=== PATIENT | male | born 1950 | race American Indian/Alaskan Native ===

== ENCOUNTER 2019-08-20 01:26 | Inpatient (IN) | payer MEDICARE ==
--- NOTE | 2019-08-20 01:55 | Emergency Department Report ---
ED Chest Pain HPI - General Chief Complaint: Chest Pain Stated Complaint: CHEST PAIN Time Seen by Provider: 08/20/19 01:35 Source: patient, EMS Mode of arrival: Stretcher Limitations: Physical Limitation - History of Present Illness Initial Comments: 69-year-old -[place] male presents to the emergency department from [facility] with the complaint of a 2-3 day history of some chest pain. He denies any significant shortness of breath but says that the chest pain is "spreading". He had some nausea and vomiting earlier in the day and complains of some intermittent abdominal pains. He did not take anything, nor was given anything, for his symptoms prior to presentation. The patient was at the [facility] for chest pains about 2 weeks ago and he says that they were the ones who sent him to the [facility]. He has a past medical history of diabetes, coronary artery disease, BPH, PTSD, peripheral neuropathy. Denies any tobacco or illicit drug use. Severity scale (0 -10): 10 - Related Data Allergies Allergy/AdvReac Type Severity Reaction Status Date / Time gabapentin Allergy Unknown Verified 08/20/19 01:38 lisinopril Allergy Unknown Verified 08/20/19 01:38 simvastatin Allergy Unknown Verified 08/20/19 01:38 oatmeal Allergy Unknown Uncoded 08/20/19 01:38 Heart Score - HEART Score History: Slightly suspicious EKG: Normal Age: > 65 Risk factors: 1-2 risk factors Troponin: < normal limit HEART Score: 3 - Critical Actions Critical Actions: 0-3 pts:0.9-1.7%risk of adverse cardiac event.Candidate for discharge ED Review of Systems ROS: Stated complaint: CHEST PAIN Other details as noted in HPI Comment: All other systems reviewed and negative Constitutional: denies: chills, fever Eyes: denies: eye pain, vision change ENT: denies: ear pain, throat pain Respiratory: denies: cough, shortness of breath Cardiovascular: chest pain. denies: palpitations Gastrointestinal: abdominal pain, nausea, vomiting Genitourinary: denies: dysuria, discharge Musculoskeletal: denies: back pain, arthralgia Neurological: denies: headache, weakness ED Past Medical Hx - Past Medical History Previous Medical History?: Yes Hx Diabetes: Yes Hx Psychiatric Treatment: Yes (PTSD) Additional medical history: depression, peripheral neuropathy, CAD, lesion of sciatic nerve - Surgical History Past Surgical History?: No - Social History Smoking Status: Current Every Day Smoker Substance Use Type: None ED Physical Exam - General Limitations: Physical Limitation - Other Other exam information: GENERAL: The patient is well-developed well-nourished. HEENT: Normocephalic. Atraumatic. Patient has moist mucous membranes. EYES: Extraocular motions are intact. NECK: Supple. Trachea is midline. CHEST/LUNGS: Clear to auscultation. There is no respiratory distress noted. HEART/CARDIOVASCULAR: Regular. There is no tachycardia. There is no murmur. ABDOMEN: Abdomen is soft, nontender. Patient has normal bowel sounds. There is no abdominal distention. SKIN:Skin is warm and dry. . NEURO: The patient is awake, alert, and oriented. The patient is cooperative. The patient has no focal neurologic deficits. Normal speech. MUSCULOSKELETAL: There is no tenderness or deformity. There is no evidence of acute injury. ED Course Vital Signs 08/20/19 01:38 Temperature 97.9 F Pulse Rate 78 Respiratory 16 Rate Blood Pressure 95/49 O2 Sat by Pulse 97 Oximetry WASHINGTON score - Washington Score Age > 65: (1) Yes Aspirin use within the Past 7 Days: (1) Yes 3 or more CAD Risk Factors: (0) No 2 or more Angina events in past 24 hrs: (1) Yes Known CAD with more than 50% Stenosis: (0) No Elevated Cardiac Markers: (0) No ST Deviation Greater than 0.5mm: (0) No WASHINGTON Score: 3 ED Medical Decision Making - Lab Data Result diagrams: 08/20/19 01:57 08/20/19 01:57 - EKG Data -: EKG Interpreted by Me EKG shows normal: sinus rhythm, axis, intervals, QRS complexes, ST-T waves Rate: normal - EKG Data When compared to previous EKG there are: previous EKG unavailable Interpretation: normal EKG - Radiology Data Radiology results: image reviewed interpreted by me: Chest x-ray does not show any pleural effusions, pneumonia, pneumothorax, focal consolidation, or any other acute process. Abdominal x-ray shows nonspecific nonobstructive bowel gas - Medical Decision Making This patient presents with some chest pain with some recent nausea and vomiting. It appears that he also has some intermittent abdominal pains. His initial EKG is normal without ST elevation WI. Negative d-dimer and negative first troponin. Patient appears to have some anemia and thrombocytopenia. He also has some renal insufficiency with a GFR of about 45. Chest x-ray did not show any pneumonia, pleural effusions, or any other acute process. Aspirin has been held secondary to the thrombocytopenia. He has a moderate heart and WASHINGTON score. For all these reasons patient will be admitted to the hospital for further evaluation and treatment and was accepted for admission by the hospitalist, Dr. Benitez. - Differential Diagnosis WI, PE, dysrhythmia, costochondritis, pneumonia Critical Care Time: No Critical care attestation.: If time is entered above; I have spent that time in minutes in the direct care of this critically ill patient, excluding procedure time. ED Disposition Clinical Impression: Acute chest pain, Thrombocytopenia, Renal insufficiency Anemia Qualifiers: Anemia type: unspecified type Qualified Code(s): D64.9 - Anemia, unspecified Disposition: 09 OP ADMIT IP TO THIS HOSP Is pt being admited?: Yes Condition: Fair Time of Disposition: 03:40
[2019-08-20] MEDS ORDERED: ONDANSETRON 4 MG/2 ML INJ IV ONE (02:12)
[2019-08-20 02:25] LABS: Hematocrit 25.6 % (35.5-45.6); Hemoglobin 8.8 gm/dl (11.8-15.2); Mean Corpuscular HGB Conc 34 % (32-34); Mean Corpuscular Volume 87 fl (84-94); Red Blood Count 2.94 M/mm3 (3.65-5.03)
[2019-08-20 02:37] LABS: Red Cell Distribution Width 20.2 % (13.2-15.2)
[2019-08-20] MEDS ORDERED: SODIUM CHLORIDE 0.9% 1000 ML 1,000 ML IV ONE (02:40)
[2019-08-20 02:44] LABS: Alanine Aminotransferase 10 units/L (7-56); Albumin 3.3 g/dL (3.9-5); BUN/Creatinine Ratio 15; Blood Urea Nitrogen 24 mg/dL (9-20); Calcium 8.6 mg/dL (8.4-10.2); Hemolysis Index 1; INR 1.14 (0.87-1.13)
[2019-08-20 02:46] LABS: Partial Thromboplastin Time 26.9 Sec. (24.2-36.6)
--- NOTE | 2019-08-20 02:46 | XRay Report ---
Abdomen 3 views, Indication: CP, Abd pain Findings: The bowel gas pattern is within normal limits. There are no dilated loops of large or small bowel. No free air is identified. No radiopaque urinary tract calculi are seen. Lungs are clear. Impression: No acute findings. Signer Name: Luis Enrique Daigle MD Signed: 08/20/2019 2:41 AM Workstation Name: [id number]
[2019-08-20] MEDS ORDERED: ACETAMINOPHEN 325 MG TAB PO PRN (03:08)
[2019-08-20] MEDS ORDERED: DEXTROSE 50% IN WATER (25GM) 50 ML SYRINGE IV PRN (03:08)
[2019-08-20] MEDS ORDERED: ALBUTEROL 2.5 MG/3 ML NEBU IH PRN (03:08)
[2019-08-20] MEDS ORDERED: ONDANSETRON 4 MG/2 ML INJ IV PRN (03:08)
[2019-08-20] MEDS ORDERED: ASPIRIN 325 MG TAB PO ONE (03:09)
[2019-08-20] MEDS ORDERED: METOCLOPRAMIDE 10 MG/2 ML INJ IV PRN ×2 (03:10→13:00)
[2019-08-20] MEDS ORDERED: NITROGLYCERIN 0.4 MG TAB SUBL SL PRN (03:10)
[2019-08-20] MEDS ORDERED: SODIUM CHLORIDE 0.9% 1000 ML 1,000 ML IV SCH (03:15)
[2019-08-20 03:32] LABS: Platelet Count 63 K/mm3 (140-440)
[2019-08-20 03:39] LABS: Anisocytosis 1+; Band Neutrophils # (Manual) 0.1 K/mm3; Basophils % (Manual) 0 % (0.0-1.8); Total Cells Counted 100
[2019-08-20 03:40] LABS: Platelet Estimate Consistent w Auto
--- NOTE | 2019-08-20 03:57 | History and Physical Report ---
<GINGER NEWBY - Last Filed: 08/20/19 03:58> History of Present Illness Date of examination: 08/20/19 Date of admission: 08/20/2019 Chief complaint: chest pain History of present illness: 69-year-old -[place] male who is a current resident at [facility] with history of diabetes, CAD, BPH, PTSD, peripheral neuropathy, lesions of the sciatic nerve, and hypertension who presents to PSYCHIATRIC ED with complaints of chest pain. Patient states he has been experiencing left- sided chest pain for the past 2 weeks. He describes the pain as dull and states that the pain is constant. He rates the pain 6/10. He admits to having shortness of breath, nausea, and vomiting. He denies diaphoresis. Of note patient was recently admitted at [facility] with complaints of chest pain. Patient states that he underwent labs and EKG. He is not sure whether or not his work-up included stress testing or echocardiogram. Patient was discharged to [facility]. Given patient's recent a dmission to [facility] with complaints of chest pain will defer additional cardiac work-up to cardiology. Will admit for further evaluation of chest pain. Also will consult mental health for evaluation. Past History Past Medical History: CAD, diabetes, other (BPH, PTSD, peripheral neuropathy, lesions of sacroiliac) Past Surgical History: No surgical history Social history: smoking (Smokes 3 to 4 cigarettes/day) Family history: no significant family history Medications and Allergies Allergies Allergy/AdvReac Type Severity Reaction Status Date / Time gabapentin Allergy Unknown Verified 08/20/19 01:38 lisinopril Allergy Unknown Verified 08/20/19 01:38 simvastatin Allergy Unknown Verified 08/20/19 01:38 oatmeal Allergy Unknown Uncoded 08/20/19 01:38 Home Medications Medication Instructions Recorded Confirmed Last Taken Type Acetaminophen [Tylenol] 325 mg PO Q6HR PRN 08/20/19 08/20/19 Unknown History Amlodipine Besylate [Norvasc] 2 tab PO DAILY 08/20/19 08/20/19 Unknown History Aspirin EC [Halfprin EC] 1 tab PO DAILY 08/20/19 08/20/19 Unknown History Duloxetine HCl 1 cap PO QAM 08/20/19 08/20/19 Unknown History Escitalopram Oxalate [Lexapro] 1.5 tab PO DAILY 08/20/19 08/20/19 Unknown History HYDROcodone/ACETAMINOPHEN 1 tab PO Q4HR PRN 08/20/19 08/20/19 Unknown History [Hydrocodone-Acetamin 5-300 mg] Insulin Glargine [Lantus VIAL] 15 units SQ HS 08/20/19 08/20/19 Unknown History Latanoprost 0.005% 1 drop HS 08/20/19 08/20/19 Unknown History Melatonin [Melatonin 3MG TAB] 1 tab PO HS PRN 08/20/19 08/20/19 Unknown History Omeprazole Magnesium [PriLOSEC Otc] 1 cap PO BID 08/20/19 08/20/19 Unknown History Pregabalin [Lyrica] 1 cap PO BID 08/20/19 08/20/19 Unknown History Tamsulosin [Flomax] 1 tab PO DAILY 08/20/19 08/20/19 Unknown History raNITIdine HCl [Zantac] 1 tab PO BID 08/20/19 08/20/19 Unknown History Active Meds: Active Medications Acetaminophen (Tylenol) 650 mg PO Q4H PRN PRN Reason: Pain MILD(1-3)/Fever >100.5/COLON Albuterol (Proventil) 2.5 mg IH Q3HRT PRN PRN Reason: Shortness Of Breath Aspirin (Baby Aspirin) 81 mg PO QDAY [facility] Dextrose (D50w (25gm) Syringe) 0 ml IV Q30MIN PRN; Protocol PRN Reason: Hypoglycemia Docusate Sodium (Colace) 100 mg PO BID [facility] Heparin Sodium (Porcine) (Heparin) 5,000 unit SUB-Q Q12HR [facility] Sodium Chloride (Nacl 0.9% 1000 Ml) 1,000 mls @ 75 mls/hr IV DIRECT [facility] Insulin Human Lispro (Humalog) 0 unit SUB-Q ACHS [facility]; Protocol Metoclopramide HCl (Reglan) 10 mg IV Q6H PRN PRN Reason: Nausea And Vomiting Nitroglycerin (Nitrostat) 0.4 mg SL Q5M PRN PRN Reason: Chest Pain Ondansetron HCl (Zofran) 4 mg IV Q6H PRN PRN Reason: Nausea And Vomiting Oxycodone/Acetaminophen (Percocet 5/325) 1 tab PO Q6H PRN PRN Reason: Pain, Moderate (4-6) Sodium Chloride (Sodium Chloride Flush Syringe 10 Ml) 10 ml IV BID [facility] Sodium Chloride (Sodium Chloride Flush Syringe 10 Ml) 10 ml IV PRN PRN PRN Reason: LINE FLUSH Review of Systems All systems: negative Cardiovascular: chest pain, shortness of breath Exam - Physical Exam Narrative exam: Physical exam General appearance: Present: No acute distress, alert and oriented 3, older adult -Q[place] male - EENT Eyes: Present: PERRL, EOM intact ENT: hearing intact, poor dentition - Neck Neck: Present: supple, normal ROM - Respiratory Respiratory effort: Non-labored Respiratory: Clear throughout - Cardiovascular Heart rate: 101 (bpm) Rhythm: Sinus tachycardia Heart Sounds: Present: S1 & S2. Absent: rub, click - Extremities Extremities: no ischemia, pulses intact, - Peripheral Assessment Peripheral Pulses: within normal limits - Abdominal General gastrointestinal: soft, non-tender, normal bowel sounds - Integumentary Integumentary: Present: warm, dry - Musculoskeletal Musculoskeletal: Able to move all extremities -Neurological Neurological: CN II-XII intact - Psychiatric Psychiatric: cooperative - Constitutional Vitals: Temp Pulse Resp BP Pulse Ox 97.9 F 78 16 95/49 97 08/20/19 01:38 08/20/19 01:38 08/20/19 01:38 08/20/19 01:38 08/20/19 01:38 MARCO score - Marco Score Age > 65: (1) Yes Aspirin use within the Past 7 Days: (1) Yes 3 or more CAD Risk Factors: (0) No 2 or more Angina events in past 24 hrs: (1) Yes Known CAD with more than 50% Stenosis: (0) No Elevated Cardiac Markers: (0) No ST Deviation Greater than 0.5mm: (0) No MARCO Score: 3 Results - Labs CBC & Chem 7: 08/20/19 01:57 08/20/19 01:57 Labs: Laboratory Last Values WBC 8.9 K/mm3 (4.5-11.0) 08/20/19 01:57 RBC 2.94 M/mm3 (3.65-5.03) L 08/20/19 01:57 Hgb 8.8 gm/dl (11.8-15.2) L 08/20/19 01:57 Hct 25.6 % (35.5-45.6) L 08/20/19 01:57 MCV 87 fl (84-94) 08/20/19 01:57 MCH 30 pg (28-32) 08/20/19 01:57 MCHC 34 % (32-34) 08/20/19 01:57 RDW 20.2 % (13.2-15.2) H 08/20/19 01:57 Plt Count 63 K/mm3 (140-440) L 08/20/19 01:57 Add Manual Diff Complete 08/20/19 01:57 Total Counted 100 08/20/19 01:57 Seg Neuts % (Manual) 77.0 % (40.0-70.0) H 08/20/19 01:57 Band Neutrophils % 1.0 % 08/20/19 01:57 Lymphocytes % (Manual) 12.0 % (13.4-35.0) L 08/20/19 01:57 Reactive Lymphs % (Man) 0 % 08/20/19 01:57 Monocytes % (Manual) 3.0 % (0.0-7.3) 08/20/19 01:57 Eosinophils % (Manual) 7.0 % (0.0-4.3) H 08/20/19 01:57 Basophils % (Manual) 0 % (0.0-1.8) 08/20/19 01:57 Metamyelocytes % 0 % 08/20/19 01:57 Myelocytes % 0 % 08/20/19 01:57 Promyelocytes % 0 % 08/20/19 01:57 Blast Cells % 0 % 08/20/19 01:57 Nucleated RBC % Not Reportable 08/20/19 01:57 Seg Neutrophils # Man 6.9 K/mm3 (1.8-7.7) 08/20/19 01:57 Band Neutrophils # 0.1 K/mm3 08/20/19 01:57 Lymphocytes # (Manual) 1.1 K/mm3 (1.2-5.4) L 08/20/19 01:57 Abs React Lymphs (Man) 0.0 K/mm3 08/20/19 01:57 Monocytes # (Manual) 0.3 K/mm3 (0.0-0.8) 08/20/19 01:57 Eosinophils # (Manual) 0.6 K/mm3 (0.0-0.4) H 08/20/19 01:57 Basophils # (Manual) 0.0 K/mm3 (0.0-0.1) 08/20/19 01:57 Metamyelocytes # 0.0 K/mm3 08/20/19 01:57 Myelocytes # 0.0 K/mm3 08/20/19 01:57 Promyelocytes # 0.0 K/mm3 08/20/19 01:57 Blast Cells # 0.0 K/mm3 08/20/19 01:57 WBC Morphology Not Reportable 08/20/19 01:57 Hypersegmented Neuts Not Reportable 08/20/19 01:57 Hyposegmented Neuts Not Reportable 08/20/19 01:57 Hypogranular Neuts Not Reportable 08/20/19 01:57 Smudge Cells Not Reportable 08/20/19 01:57 Toxic Granulation Not Reportable 08/20/19 01:57 Toxic Vacuolation Not Reportable 08/20/19 01:57 Dohle Bodies Not Reportable 08/20/19 01:57 Pelger-Huet Anomaly Not Reportable 08/20/19 01:57 Christina Rods Not Reportable 08/20/19 01:57 Platelet Estimate Consistent w auto 08/20/19 01:57 Clumped Platelets Not Reportable 08/20/19 01:57 Plt Clumps, EDTA Not Reportable 08/20/19 01:57 Large Platelets Not Reportable 08/20/19 01:57 Giant Platelets Not Reportable 08/20/19 01:57 Platelet Satelliting Not Reportable 08/20/19 01:57 Plt Morphology Comment Not Reportable 08/20/19 01:57 RBC Morphology Not Reportable 08/20/19 01:57 Dimorphic RBCs Not Reportable 08/20/19 01:57 Polychromasia Not Reportable 08/20/19 01:57 Hypochromasia Not Reportable 08/20/19 01:57 Poikilocytosis Not Reportable 08/20/19 01:57 Anisocytosis 1+ 08/20/19 01:57 Microcytosis Not Reportable 08/20/19 01:57 Macrocytosis Not Reportable 08/20/19 01:57 Spherocytes Not Reportable 08/20/19 01:57 Pappenheimer Bodies Not Reportable 08/20/19 01:57 Sickle Cells Not Reportable 08/20/19 01:57 Target Cells Not Reportable 08/20/19 01:57 Tear Drop Cells Not Reportable 08/20/19 01:57 Ovalocytes Not Reportable 08/20/19 01:57 Helmet Cells Not Reportable 08/20/19 01:57 [place] Bodies Not Reportable 08/20/19 01:57 [place] Rings Not Reportable 08/20/19 01:57 [place] Cells Not Reportable 08/20/19 01:57 Bite Cells Not Reportable 08/20/19 01:57 Crenated Cell Not Reportable 08/20/19 01:57 Elliptocytes Not Reportable 08/20/19 01:57 Acanthocytes (Spur) Not Reportable 08/20/19 01:57 Rouleaux Not Reportable 08/20/19 01:57 Hemoglobin C Crystals Not Reportable 08/20/19 01:57 Schistocytes Not Reportable 08/20/19 01:57 Malaria parasites Not Reportable 08/20/19 01:57 Tylor Bodies Not Reportable 08/20/19 01:57 Hem Pathologist Commnt No 08/20/19 01:57 PT 14.8 Sec. (12.2-14.9) 08/20/19 01:57 INR 1.14 (0.87-1.13) H 08/20/19 01:57 APTT 26.9 Sec. (24.2-36.6) 08/20/19 01:57 D-Dimer 214.11 ng/mlDDU (0-234) 08/20/19 01:57 Sodium 142 mmol/L (137-145) 08/20/19 01:57 Potassium 4.0 mmol/L (3.6-5.0) 08/20/19 01:57 Chloride 102.9 mmol/L (98-107) 08/20/19 01:57 Carbon Dioxide 30 mmol/L (22-30) 08/20/19 01:57 Anion Gap 13 mmol/L 08/20/19 01:57 BUN 24 mg/dL (9-20) H 08/20/19 01:57 Creatinine 1.6 mg/dL (0.8-1.5) H 08/20/19 01:57 Estimated GFR 43 ml/min 08/20/19 01:57 BUN/Creatinine Ratio 15 % 08/20/19 01:57 Glucose 163 mg/dL (75-100) H 08/20/19 01:57 Calcium 8.6 mg/dL (8.4-10.2) 08/20/19 01:57 Total Bilirubin 1.10 mg/dL (0.1-1.2) 08/20/19 01:57 AST 12 units/L (5-40) 08/20/19 01:57 ALT 10 units/L (7-56) 08/20/19 01:57 Alkaline Phosphatase 75 units/L (35-129) 08/20/19 01:57 Troponin T < 0.010 ng/mL (0.00-0.029) 08/20/19 01:57 Total Protein 5.9 g/dL (6.3-8.2) L 08/20/19 01:57 Albumin 3.3 g/dL (3.9-5) L 08/20/19 01:57 Albumin/Globulin Ratio 1.3 % 08/20/19 01:57 - Imaging and Cardiology Imaging and Cardiology: Chest & Abdominal XR: Indication: CP, Abd pain Findings: The bowel gas pattern is within normal limits. There are no dilated loops of large or small bowel. No free air is identified. No radiopaque urinary tract calculi are seen. Lungs are clear. Impression: No acute findings. Assessment and Plan Assessment and plan: 69-year-old -[place] male who is a current resident at [facility] with history of diabetes, CAD, BPH, PTSD, peripheral neuropathy, lesions of the sciatic nerve, and hypertension who presents to PSYCHIATRIC ED with complaints of chest pain. Acute Chest Pain -Initiate chest pain protocol -Continuous telemetry monitoring -Continue supportive care -CXR negative -D-Dimer pending -Pain mgmt -Troponin negative x 1 , will continue to trend -EKG unrevealing for acute ischemic abnormalities -Cardiology consulted BRUNILDA -Cr on admission 1.6 -Hydrate with IVF -Avoid nephrotoxic agents -Renal dose all meds -If no improvement within the next day may consider nephrology consult Anemia -Hemoglobin on admission 8.8 -No s/s of active bleeding -Continue to monitor hemoglobin -Transfuse as needed Hypotension -BP 95/49 -Hx HTN -Monitor BP -Hold all antihypertensive meds for now -Receiving IV fluids DM -POC BG monitoring -Scheduled Lantus and SSI coverage prn -HgbA1C pending Moderate to severe malnutrition -Albumin 3.3 -Start nutritional supplement -Dietitian consult Tobacco abuse -Current every day smoker -Smokes 3 to 4 cigarettes/day -Counseled for cessation for 10 minutes -Nicotine patch when necessary BPH -Continue Flomax DVT PPX -On Heparin Advance Directives: No VTE prophylaxis?: Chemical Plan of care discussed with patient/family: Yes <PIPPA BARTON - Last Filed: 08/20/19 06:28> History of Present Illness Date of admission: 08/20/19 03:48 Medications and Allergies Active Meds: Active Medications Acetaminophen (Tylenol) 650 mg PO Q4H PRN PRN Reason: Pain MILD(1-3)/Fever >100.5/COLON Albuterol (Proventil) 2.5 mg IH Q3HRT PRN PRN Reason: Shortness Of Breath Aspirin (Baby Aspirin) 81 mg PO QDAY [facility] Dextrose (D50w (25gm) Syringe) 0 ml IV Q30MIN PRN; Protocol PRN Reason: Hypoglycemia Docusate Sodium (Colace) 100 mg PO BID [facility] Duloxetine HCl (Cymbalta) 60 mg PO QDAY [facility] Escitalopram Oxalate (Lexapro) 30 mg PO DAILY [facility] Heparin Sodium (Porcine) (Heparin) 5,000 unit SUB-Q Q12HR [facility] Sodium Chloride (Nacl 0.9% 1000 Ml) 1,000 mls @ 75 mls/hr IV DIRECT [facility] Insulin Glargine (Lantus) 15 units SUB-Q HS [facility] Insulin Human Lispro (Humalog) 0 unit SUB-Q ACHS [facility]; Protocol Melatonin (Melatonin) 5 mg PO QHS PRN PRN Reason: Sleep Metoclopramide HCl (Reglan) 10 mg IV Q6H PRN PRN Reason: Nausea And Vomiting Nicotine (Habitrol) 14 mg TD QDAY [facility] Nitroglycerin (Nitrostat) 0.4 mg SL Q5M PRN PRN Reason: Chest Pain Ondansetron HCl (Zofran) 4 mg IV Q6H PRN PRN Reason: Nausea And Vomiting Oxycodone/Acetaminophen (Percocet 5/325) 1 tab PO Q6H PRN PRN Reason: Pain, Moderate (4-6) Pantoprazole Sodium (Protonix) 40 mg PO BID [facility] Pregabalin (Pregabalin) 75 mg PO BID [facility] Sodium Chloride (Sodium Chloride Flush Syringe 10 Ml) 10 ml IV BID [facility] Sodium Chloride (Sodium Chloride Flush Syringe 10 Ml) 10 ml IV PRN PRN PRN Reason: LINE FLUSH Tamsulosin HCl (Flomax) 0.4 mg PO DAILY [facility] Exam - Constitutional Vitals: Temp Pulse Resp BP Pulse Ox 97.9 F 78 18 112/60 99 08/20/19 01:38 08/20/19 04:00 08/20/19 05:56 08/20/19 04:00 08/20/19 03:00 Results - Labs CBC & Chem 7: 08/20/19 01:57 08/20/19 01:57 Labs: Laboratory Last Values WBC 8.9 K/mm3 (4.5-11.0) 08/20/19 01:57 RBC 2.94 M/mm3 (3.65-5.03) L 08/20/19 01:57 Hgb 8.8 gm/dl (11.8-15.2) L 08/20/19 01:57 Hct 25.6 % (35.5-45.6) L 08/20/19 01:57 MCV 87 fl (84-94) 08/20/19 01:57 MCH 30 pg (28-32) 08/20/19 01:57 MCHC 34 % (32-34) 08/20/19 01:57 RDW 20.2 % (13.2-15.2) H 08/20/19 01:57 Plt Count 63 K/mm3 (140-440) L 08/20/19 01:57 Add Manual Diff Complete 08/20/19 01:57 Total Counted 100 08/20/19 01:57 Seg Neuts % (Manual) 77.0 % (40.0-70.0) H 08/20/19 01:57 Band Neutrophils % 1.0 % 08/20/19 01:57 Lymphocytes % (Manual) 12.0 % (13.4-35.0) L 08/20/19 01:57 Reactive Lymphs % (Man) 0 % 08/20/19 01:57 Monocytes % (Manual) 3.0 % (0.0-7.3) 08/20/19 01:57 Eosinophils % (Manual) 7.0 % (0.0-4.3) H 08/20/19 01:57 Basophils % (Manual) 0 % (0.0-1.8) 08/20/19 01:57 Metamyelocytes % 0 % 08/20/19 01:57 Myelocytes % 0 % 08/20/19 01:57 Promyelocytes % 0 % 08/20/19 01:57 Blast Cells % 0 % 08/20/19 01:57 Nucleated RBC % Not Reportable 08/20/19 01:57 Seg Neutrophils # Man 6.9 K/mm3 (1.8-7.7) 08/20/19 01:57 Band Neutrophils # 0.1 K/mm3 08/20/19 01:57 Lymphocytes # (Manual) 1.1 K/mm3 (1.2-5.4) L 08/20/19 01:57 Abs React Lymphs (Man) 0.0 K/mm3 08/20/19 01:57 Monocytes # (Manual) 0.3 K/mm3 (0.0-0.8) 08/20/19 01:57 Eosinophils # (Manual) 0.6 K/mm3 (0.0-0.4) H 08/20/19 01:57 Basophils # (Manual) 0.0 K/mm3 (0.0-0.1) 08/20/19 01:57 Metamyelocytes # 0.0 K/mm3 08/20/19 01:57 Myelocytes # 0.0 K/mm3 08/20/19 01:57 Promyelocytes # 0.0 K/mm3 08/20/19 01:57 Blast Cells # 0.0 K/mm3 08/20/19 01:57 WBC Morphology Not Reportable 08/20/19 01:57 Hypersegmented Neuts Not Reportable 08/20/19 01:57 Hyposegmented Neuts Not Reportable 08/20/19 01:57 Hypogranular Neuts Not Reportable 08/20/19 01:57 Smudge Cells Not Reportable 08/20/19 01:57 Toxic Granulation Not Reportable 08/20/19 01:57 Toxic Vacuolation Not Reportable 08/20/19 01:57 Dohle Bodies Not Reportable 08/20/19 01:57 Pelger-Huet Anomaly Not Reportable 08/20/19 01:57 Christina Rods Not Reportable 08/20/19 01:57 Platelet Estimate Consistent w auto 08/20/19 01:57 Clumped Platelets Not Reportable 08/20/19 01:57 Plt Clumps, EDTA Not Reportable 08/20/19 01:57 Large Platelets Not Reportable 08/20/19 01:57 Giant Platelets Not Reportable 08/20/19 01:57 Platelet Satelliting Not Reportable 08/20/19 01:57 Plt Morphology Comment Not Reportable 08/20/19 01:57 RBC Morphology Not Reportable 08/20/19 01:57 Dimorphic RBCs Not Reportable 08/20/19 01:57 Polychromasia Not Reportable 08/20/19 01:57 Hypochromasia Not Reportable 08/20/19 01:57 Poikilocytosis Not Reportable 08/20/19 01:57 Anisocytosis 1+ 08/20/19 01:57 Microcytosis Not Reportable 08/20/19 01:57 Macrocytosis Not Reportable 08/20/19 01:57 Spherocytes Not Reportable 08/20/19 01:57 Pappenheimer Bodies Not Reportable 08/20/19 01:57 Sickle Cells Not Reportable 08/20/19 01:57 Target Cells Not Reportable 08/20/19 01:57 Tear Drop Cells Not Reportable 08/20/19 01:57 Ovalocytes Not Reportable 08/20/19 01:57 Helmet Cells Not Reportable 08/20/19 01:57 [place] Bodies Not Reportable 08/20/19 01:57 [place] Rings Not Reportable 08/20/19 01:57 [place] Cells Not Reportable 08/20/19 01:57 Bite Cells Not Reportable 08/20/19 01:57 Crenated Cell Not Reportable 08/20/19 01:57 Elliptocytes Not Reportable 08/20/19 01:57 Acanthocytes (Spur) Not Reportable 08/20/19 01:57 Rouleaux Not Reportable 08/20/19 01:57 Hemoglobin C Crystals Not Reportable 08/20/19 01:57 Schistocytes Not Reportable 08/20/19 01:57 Malaria parasites Not Reportable 08/20/19 01:57 Tylor Bodies Not Reportable 08/20/19 01:57 Hem Pathologist Commnt No 08/20/19 01:57 PT 14.8 Sec. (12.2-14.9) 08/20/19 01:57 INR 1.14 (0.87-1.13) H 08/20/19 01:57 APTT 26.9 Sec. (24.2-36.6) 08/20/19 01:57 D-Dimer 206.97 ng/mlDDU (0-234) 08/20/19 04:26 Sodium 142 mmol/L (137-145) 08/20/19 01:57 Potassium 4.0 mmol/L (3.6-5.0) 08/20/19 01:57 Chloride 102.9 mmol/L (98-107) 08/20/19 01:57 Carbon Dioxide 30 mmol/L (22-30) 08/20/19 01:57 Anion Gap 13 mmol/L 08/20/19 01:57 BUN 24 mg/dL (9-20) H 08/20/19 01:57 Creatinine 1.6 mg/dL (0.8-1.5) H 08/20/19 01:57 Estimated GFR 43 ml/min 08/20/19 01:57 BUN/Creatinine Ratio 15 % 08/20/19 01:57 Glucose 163 mg/dL (75-100) H 08/20/19 01:57 Calcium 8.6 mg/dL (8.4-10.2) 08/20/19 01:57 Total Bilirubin 1.10 mg/dL (0.1-1.2) 08/20/19 01:57 AST 12 units/L (5-40) 08/20/19 01:57 ALT 10 units/L (7-56) 08/20/19 01:57 Alkaline Phosphatase 75 units/L (35-129) 08/20/19 01:57 Troponin T < 0.010 ng/mL (0.00-0.029) 08/20/19 04:26 Total Protein 5.9 g/dL (6.3-8.2) L 08/20/19 01:57 Albumin 3.3 g/dL (3.9-5) L 08/20/19 01:57 Albumin/Globulin Ratio 1.3 % 08/20/19 01:57 Triglycerides 159 mg/dL (2-149) H 08/20/19 04:26 Cholesterol 141 mg/dL (50-199) 08/20/19 04:26 LDL Cholesterol Direct 77 mg/dL (50-130) 08/20/19 04:26 HDL Cholesterol 44 mg/dL (40-59) 08/20/19 04:26 Cholesterol/HDL Ratio 3.20 % 08/20/19 04:26 Assessment and Plan Assessment and plan: Patient seen and examined, agree with plan as stated above
[2019-08-20] MEDS ORDERED: MELATONIN 5 MG TAB PO PRN (05:00)
[2019-08-20 06:23] LABS: Chol/HDL Ratio 3.2 %
[2019-08-20] MEDS: INSULIN LISPRO 100 UNIT/ML SUB-Q SCH ×4 (08:58→23:14)
[2019-08-20] MEDS: DULoxetine 30 MG CAP PO SCH (09:00)
[2019-08-20] MEDS: PANTOPRAZOLE 40 MG TAB PO SCH ×2 (09:00→23:14)
[2019-08-20] MEDS: PREGABALIN 75 MG CAP PO SCH ×2 (09:00→23:14)
[2019-08-20] MEDS: NICOTINE 14 MG/24 HR PATCH TD SCH (09:00)
[2019-08-20] MEDS: ESCITALOPRAM 10 MG TAB PO SCH (09:01)
[2019-08-20] MEDS: DOCUSATE SODIUM 100 MG CAP PO SCH ×2 (09:06→23:14)
[2019-08-20] MEDS: HEPARIN 5,000 UNIT/1 ML VIAL SUB-Q SCH ×2 (09:07→23:15)
[2019-08-20] MEDS: TAMSULOSIN 0.4 MG CAP PO SCH (09:08)
--- NOTE | 2019-08-20 09:41 | Consultation ---
History of Present Illness Consult date: 08/20/19 Requesting physician: GINGER NEWBY Consult reason: chest pain History of present illness: The pt is a 69-year-old -Thai male resident at [facility] with a past medical history of HTN, DM, peripheral neuropathy, lesions of the sciatic nerve, PTSD. He is previously unknown to our practice. He presented with c/o chest pain for the past 2-3 days. He describes his chest pain as an intermittent "spreading" and "whooshing" pain. The pain is aggravated by coughing. He denies any SOB, palpitations, n/v, diaphoresis, dizziness or syncope. He is a rather poor historian and appears somewhat confused on evaluation - he does not know where he is or what year it is. He states that he was hospitalized [facility] [place] [facility] ago for evaluation of chest pain. He thinks he had a stress test at that time. He denies any known prior cardiac issues, including CAD, AMI or HF. He denies any tobacco use, ETOH use or illicit drug use. Past History Past Medical History: diabetes, hypertension, other (BPH, PTSD, peripheral neuropathy, lesions of sacroiliac) Past Surgical History: No surgical history Social history: smoking (Smokes 3 to 4 cigarettes/day) Family history: no significant family history Medications and Allergies Allergies Allergy/AdvReac Type Severity Reaction Status Date / Time gabapentin Allergy Unknown Verified 08/20/19 01:38 lisinopril Allergy Unknown Verified 08/20/19 01:38 simvastatin Allergy Unknown Verified 08/20/19 01:38 oatmeal Allergy Unknown Uncoded 08/20/19 01:38 Home Medications Medication Instructions Recorded Confirmed Last Taken Type Acetaminophen [Tylenol] 325 mg PO Q6HR PRN 08/20/19 08/20/19 Unknown History Amlodipine Besylate [Norvasc] 2 tab PO DAILY 08/20/19 08/20/19 Unknown History Aspirin EC [Halfprin EC] 1 tab PO DAILY 08/20/19 08/20/19 Unknown History Duloxetine HCl 1 cap PO QAM 08/20/19 08/20/19 Unknown History Escitalopram Oxalate [Lexapro] 1.5 tab PO DAILY 08/20/19 08/20/19 Unknown History HYDROcodone/ACETAMINOPHEN 1 tab PO Q4HR PRN 08/20/19 08/20/19 Unknown History [Hydrocodone-Acetamin 5-300 mg] Insulin Glargine [Lantus VIAL] 15 units SQ HS 08/20/19 08/20/19 Unknown History Latanoprost 0.005% 1 drop HS 08/20/19 08/20/19 Unknown History Melatonin [Melatonin 3MG TAB] 1 tab PO HS PRN 08/20/19 08/20/19 Unknown History Omeprazole Magnesium [PriLOSEC Otc] 1 cap PO BID 08/20/19 08/20/19 Unknown His tory Pregabalin [Lyrica] 1 cap PO BID 08/20/19 08/20/19 Unknown History Tamsulosin [Flomax] 1 tab PO DAILY 08/20/19 08/20/19 Unknown History raNITIdine HCl [Zantac] 1 tab PO BID 08/20/19 08/20/19 Unknown History Active Meds: Active Medications Acetaminophen (Tylenol) 650 mg PO Q4H PRN PRN Reason: Pain MILD(1-3)/Fever >100.5/COLON Albuterol (Proventil) 2.5 mg IH Q3HRT PRN PRN Reason: Shortness Of Breath Aspirin (Baby Aspirin) 81 mg PO QDAY [facility] Dextrose (D50w (25gm) Syringe) 0 ml IV Q30MIN PRN; Protocol PRN Reason: Hypoglycemia Docusate Sodium (Colace) 100 mg PO BID [facility] Last Admin: 08/20/19 09:06 Dose: 100 mg Documented by: Duloxetine HCl (Cymbalta) 60 mg PO QDAY [facility] Last Admin: 08/20/19 09:00 Dose: 60 mg Documented by: Escitalopram Oxalate (Lexapro) 30 mg PO DAILY [facility] Last Admin: 08/20/19 09:01 Dose: 30 mg Documented by: Heparin Sodium (Porcine) (Heparin) 5,000 unit SUB-Q Q12HR [facility] Last Admin: 08/20/19 09:07 Dose: 5,000 unit Documented by: Sodium Chloride (Nacl 0.9% 1000 Ml) 1,000 mls @ 75 mls/hr IV DIRECT [facility] Insulin Glargine (Lantus) 15 units SUB-Q [facility] Insulin Human Lispro (Humalog) 0 unit SUB-Q [facility]; Protocol Last Admin: 08/20/19 08:58 Dose: 6 unit Documented by: Melatonin (Melatonin) 5 mg PO QHS PRN PRN Reason: Sleep Metoclopramide HCl (Reglan) 10 mg IV Q6H PRN PRN Reason: Nausea And Vomiting Nicotine (Habitrol) 14 mg TD QDAY [facility] Last Admin: 08/20/19 09:00 Dose: 14 mg Documented by: Nitroglycerin (Nitrostat) 0.4 mg SL Q5M PRN PRN Reason: Chest Pain Ondansetron HCl (Zofran) 4 mg IV Q6H PRN PRN Reason: Nausea And Vomiting Oxycodone/Acetaminophen (Percocet 5/325) 1 tab PO Q6H PRN PRN Reason: Pain, Moderate (4-6) Pantoprazole Sodium (Protonix) 40 mg PO BID [facility] Last Admin: 08/20/19 09:00 Dose: 40 mg Documented by: Pregabalin (Pregabalin) 75 mg PO BID [facility] Last Admin: 08/20/19 09:00 Dose: 75 mg Documented by: Sodium Chloride (Sodium Chloride Flush Syringe 10 Ml) 10 ml IV BID [facility] Last Admin: 08/20/19 09:08 Dose: 10 ml Documented by: Sodium Chloride (Sodium Chloride Flush Syringe 10 Ml) 10 ml IV PRN PRN PRN Reason: LINE FLUSH Tamsulosin HCl (Flomax) 0.4 mg PO DAILY [facility] Last Admin: 08/20/19 09:08 Dose: 0.4 mg Documented by: Review of Systems Constitutional: no weight loss, no weight gain, no fever, no chills, no sweats Ears, nose, mouth and throat: no ear pain, no nose pain, no sinus pressure, no sinus pain Cardiovascular: chest pain, no orthopnea, no palpitations, no rapid/irregular heart beat, no edema, no syncope, no lightheadedness, no shortness of breath, no dyspnea on exertion Respiratory: no cough, no shortness of breath, no dyspnea on exertion, no congestion, no wheezing Gastrointestinal: no abdominal pain, no nausea, no vomiting, no diarrhea, no constipation, no change in bowel habits Genitourinary Male: no dysuria, no hematuria, no flank pain, no discharge, no urinary frequency, no urinary hesitancy Musculoskeletal: no neck stiffness, no neck pain, no shooting arm pain, no arm numbness/tingling, no low back pain, no shooting leg pain Integumentary: no rash, no pruritis, no redness, no sores, no wounds Neurological: no head injury, no paralysis, no weakness, no parathesias, no numbness, no tingling, no seizures, no syncope Endocrine: no cold intolerance, no heat intolerance Hematologic/Lymphatic: no easy bruising, no easy bleeding Allergic/Immunologic: no urticaria, no wheezing Physical Examination Vital Signs Temp Pulse Resp BP Pulse Ox 97.9 F 78 16 95/49 97 08/20/19 01:38 08/20/19 01:38 08/20/19 01:38 08/20/19 01:38 08/20/19 01:38 General appearance: no acute distress HEENT: Positive: PERRL, Normocephaly, Mucus Membranes Moist Neck: Positive: neck supple, trachea midline Cardiac: Positive: Reg Rate and Rhythm, S1/S2 Lungs: Positive: Decreased Breath Sounds Neuro: Positive: Cranial Nerve 2-12 Intact Abdomen: Negative: Tender Skin: Negative: Rash Musculoskeletal: No Pain Extremities: Absent: edema Results 08/20/19 01:57 08/20/19 01:57 Cardiac Enzymes 08/20/19 Range/Units 01:57 AST 12 (5-40) units/L Coagulation 08/20/19 Range/Units 01:57 PT 14.8 (12.2-14.9) Sec. INR 1.14 H (0.87-1.13) APTT 26.9 (24.2-36.6) Sec. Lipids 08/20/19 Range/Units 04:26 Triglycerides 159 H (2-149) mg/dL Cholesterol 141 (50-199) mg/dL HDL Cholesterol 44 (40-59) mg/dL Cholesterol/HDL Ratio 3.20 % CBC 08/20/19 Range/Units 01:57 WBC 8.9 (4.5-11.0) K/mm3 RBC 2.94 L (3.65-5.03) M/mm3 Hgb 8.8 L (11.8-15.2) gm/dl Hct 25.6 L (35.5-45.6) % Plt Count 63 L (140-440) K/mm3 Comprehensive Metabolic Panel 08/20/19 Range/Units 01:57 Sodium 142 (137-145) mmol/L Potassium 4.0 (3.6-5.0) mmol/L Chloride 102.9 (98-107) mmol/L Carbon Dioxide 30 (22-30) mmol/L BUN 24 H (9-20) mg/dL Creatinine 1.6 H (0.8-1.5) mg/dL Glucose 163 H (75-100) mg/dL Calcium 8.6 (8.4-10.2) mg/dL AST 12 (5-40) units/L ALT 10 (7-56) units/L Alkaline Phosphatase 75 (35-129) units/L Total Protein 5.9 L (6.3-8.2) g/dL Albumin 3.3 L (3.9-5) g/dL - Imaging and Cardiology Echo: pending EKG: report reviewed, image reviewed EKG interpretations - Telemetry EKG Rhythm: Sinus Rhythm - EKG Sinus rhythms and dysrhythmias: sinus rhythm Assessment and Plan Chest Pain Leonor negative for AMI x 2. ECG with no acute ischemic changes. CXR NAF. DDimer WNL. Pt reports that he was hospitalized at the [place] 2[place] ago for evaluation of chest pain. He thinks he had a stress test at that time. Will attempt to obtain these records. If unable to obtain these records, consider stress test in AM. Will make NPO after MN for tentative stress test in AM. Obtain echo. Cont ASA 81. BURNILDA Cr on admission 1.6. Cont IVF per primary. Anemia / thrombocytopenia Monitor H/H. Hypotension Suspect secondary to ? dehydration. Pt with h/o chronic HTN. BPs improving. Cont IVF per primary. DM / peripheral neuropathy Per primary team. Malnutrition PTSD / ? AMS Pt is resident at [facility]. Mental health evaluation pending. The patient has been seen in conjunction with Dr. Westfall who agrees with the assessment and plan of care.
[2019-08-20] MEDS ORDERED: ASPIRIN EC 81 MG TAB PO SCH (10:00)
--- NOTE | 2019-08-20 13:37 | Consultation ---
History of Present Illness - Reason for Consult Consult date: 08/20/19 Reason for consult: confusion - History of Present Psychiatric Illness I attempted to interview the patient today, he was lying in bed asleep. Easily arouses, but drifts back to sleep. He says he came to the hospital for "chest pain and weakness." The patient is confused. He says [facility]" when assessing his orientation. He referred to the year as "1942." It is very difficulty to keep the patient awake long enough to engage him in the interview. Will reassess the patient tomorrow. PAST PSYCHIATRIC HISTORY: Unable to assess PAST MEDICAL HISTORY: Unable to assess Family Psychiatric History Unable to assess SOCIAL HISTORY Unable to assess REVIEW OF SYSTEMS Unable to assess MSE Unable to assess Assessment: Altered Mental Status Plan Risperidone 0.25mg po BID Sitter: defer to primary Medical: Per primary Disposition: TBD. Will reassess once the patient is able to give detail of symptoms and history Will continue to follow. Please call with any questions or concerns. Thank you for this consult. Medications and Allergies Allergies Allergy/AdvReac Type Severity Reaction Status Date / Time gabapentin Allergy Unknown Verified 08/20/19 01:38 lisinopril Allergy Unknown Verified 08/20/19 01:38 simvastatin Allergy Unknown Verified 08/20/19 01:38 oatmeal Allergy Unknown Uncoded 08/20/19 01:38 Home Medications Medication Instructions Recorded Confirmed Last Taken Type Acetaminophen [Tylenol] 325 mg PO Q6HR PRN 08/20/19 08/20/19 Unknown History Amlodipine Besylate [Norvasc] 2 tab PO DAILY 08/20/19 08/20/19 Unknown History Aspirin EC [Halfprin EC] 1 tab PO DAILY 08/20/19 08/20/19 Unknown History Duloxetine HCl 1 cap PO QAM 08/20/19 08/20/19 Unknown History Escitalopram Oxalate [Lexapro] 1.5 tab PO DAILY 08/20/19 08/20/19 Unknown History HYDROcodone/ACETAMINOPHEN 1 tab PO Q4HR PRN 08/20/19 08/20/19 Unknown History [Hydrocodone-Acetamin 5-300 mg] Insulin Glargine [Lantus VIAL] 15 units SQ HS 08/20/19 08/20/19 Unknown History Latanoprost 0.005% 1 drop HS 08/20/19 08/20/19 Unknown History Melatonin [Melatonin 3MG TAB] 1 tab PO HS PRN 08/20/19 08/20/19 Unknown History Omeprazole Magnesium [PriLOSEC Otc] 1 cap PO BID 08/20/19 08/20/19 Unknown History Pregabalin [Lyrica] 1 cap PO BID 08/20/19 08/20/19 Unknown History Tamsulosin [Flomax] 1 tab PO DAILY 08/20/19 08/20/19 Unknown History raNITIdine HCl [Zantac] 1 tab PO BID 08/20/19 08/20/19 Unknown History Active Meds: Active Medications Acetaminophen (Tylenol) 650 mg PO Q4H PRN PRN Reason: Pain MILD(1-3)/Fever >100.5/COLON Albuterol (Proventil) 2.5 mg IH Q3HRT PRN PRN Reason: Shortness Of Breath Aspirin (Baby Aspirin) 81 mg PO QDAY [facility] Dextrose (D50w (25gm) Syringe) 0 ml IV Q30MIN PRN; Protocol PRN Reason: Hypoglycemia Docusate Sodium (Colace) 100 mg PO BID [facility] Last Admin: 08/20/19 09:06 Dose: 100 mg Documented by: Duloxetine HCl (Cymbalta) 60 mg PO QDAY [facility] Last Admin: 08/20/19 09:00 Dose: 60 mg Documented by: Escitalopram Oxalate (Lexapro) 30 mg PO DAILY [facility] Last Admin: 08/20/19 09:01 Dose: 30 mg Documented by: Heparin Sodium (Porcine) (Heparin) 5,000 unit SUB-Q Q12HR [facility] Last Admin: 08/20/19 09:07 Dose: 5,000 unit Documented by: Sodium Chloride (Nacl 0.9% 1000 Ml) 1,000 mls @ 75 mls/hr IV DIRECT [facility] Insulin Glargine (Lantus) 15 units SUB-Q HS [facility] Insulin Human Lispro (Humalog) 0 unit SUB-Q [facility]; Protocol Last Admin: 08/20/19 08:58 Dose: 6 unit Documented by: Melatonin (Melatonin) 5 mg PO QHS PRN PRN Reason: Sleep Metoclopramide HCl (Reglan) 5 mg IV Q6H PRN PRN Reason: Nausea And Vomiting Nicotine (Habitrol) 14 mg TD QDAY [facility] Last Admin: 08/20/19 09:00 Dose: 14 mg Documented by: Nitroglycerin (Nitrostat) 0.4 mg SL Q5M PRN PRN Reason: Chest Pain Ondansetron HCl (Zofran) 4 mg IV Q6H PRN PRN Reason: Nausea And Vomiting Oxycodone/Acetaminophen (Percocet 5/325) 1 tab PO Q6H PRN PRN Reason: Pain, Moderate (4-6) Pantoprazole Sodium (Protonix) 40 mg PO BID [facility] Last Admin: 08/20/19 09:00 Dose: 40 mg Documented by: Pregabalin (Pregabalin) 75 mg PO BID [facility] Last Admin: 08/20/19 09:00 Dose: 75 mg Documented by: Sodium Chloride (Sodium Chloride Flush Syringe 10 Ml) 10 ml IV BID [facility] Last Admin: 08/20/19 09:08 Dose: 10 ml Documented by: Sodium Chloride (Sodium Chloride Flush Syringe 10 Ml) 10 ml IV PRN PRN PRN Reason: LINE FLUSH Tamsulosin HCl (Flomax) 0.4 mg PO DAILY [facility] Last Admin: 08/20/19 09:08 Dose: 0.4 mg Documented by: Mental Status Exam - Vital signs Last Vital Signs Temp 98.0 F 08/20/19 08:00 Pulse 84 08/20/19 08:00 Resp 18 08/20/19 08:00 BP 102/50 08/20/19 08:00 Pulse Ox 97 08/20/19 08:00 Results Result Diagrams: 08/20/19 01:57 08/20/19 01:57 Abnormal lab results 08/20/19 08/20/19 08/20/19 Range/Units 01:57 01:57 01:57 RBC 2.94 L (3.65-5.03) M/mm3 Hgb 8.8 L (11.8-15.2) gm/dl Hct 25.6 L (35.5-45.6) % RDW 20.2 H (13.2-15.2) % Plt Count 63 L (140-440) K/mm3 Seg Neuts % (Manual) 77.0 H (40.0-70.0) % Lymphocytes % (Manual) 12.0 L (13.4-35.0) % Eosinophils % (Manual) 7.0 H (0.0-4.3) % Lymphocytes # (Manual) 1.1 L (1.2-5.4) K/mm3 Eosinophils # (Manual) 0.6 H (0.0-0.4) K/mm3 INR 1.14 H (0.87-1.13) BUN 24 H (9-20) mg/dL Creatinine 1.6 H (0.8-1.5) mg/dL Glucose 163 H (75-100) mg/dL POC Glucose (70-105) Total Protein 5.9 L (6.3-8.2) g/dL Albumin 3.3 L (3.9-5) g/dL Triglycerides (2-149) mg/dL 08/20/19 08/20/19 Range/Units 04:26 08:08 RBC (3.65-5.03) M/mm3 Hgb (11.8-15.2) gm/dl Hct (35.5-45.6) % RDW (13.2-15.2) % Plt Count (140-440) K/mm3 Seg Neuts % (Manual) (40.0-70.0) % Lymphocytes % (Manual) (13.4-35.0) % Eosinophils % (Manual) (0.0-4.3) % Lymphocytes # (Manual) (1.2-5.4) K/mm3 Eosinophils # (Manual) (0.0-0.4) K/mm3 INR (0.87-1.13) BUN (9-20) mg/dL Creatinine (0.8-1.5) mg/dL Glucose (75-100) mg/dL POC Glucose 318 H (70-105) Total Protein (6.3-8.2) g/dL Albumin (3.9-5) g/dL Triglycerides 159 H (2-149) mg/dL All other labs normal.
[2019-08-20] MEDS: risperiDONE 0.25 MG TAB PO SCH ×2 (14:48→23:14)
--- NOTE | 2019-08-20 17:39 | Event Note ---
Date: 08/20/19 Patient presents with chest pain. I have seen and examined him. Cardiology following.
[2019-08-20] MEDS: oxyCODONE /ACETAMINOPHEN 5-325MG TAB PO PRN (21:13)
[2019-08-20] MEDS: INSULIN GLARGINE 100 UNITS/ML SUB-Q SCH (23:15)
[2019-08-21 05:13] LABS: Basophils % (Auto) 0.6 % (0.0-1.8); Eosinophils # (Auto) 0.3 K/mm3 (0.0-0.4); Eosinophils % (Auto) 5.2 % (0.0-4.3); Hematocrit 23.4 % (35.5-45.6); Hemoglobin 8.1 gm/dl (11.8-15.2); Lymphocytes # (Auto) 1.5 K/mm3 (1.2-5.4); Lymphocytes % (Auto) 23.9 % (13.4-35.0); Mean Corpuscular HGB Conc 35 % (32-34); Mean Corpuscular Volume 88 fl (84-94); Monocytes # (Auto) 0.5 K/mm3 (0.0-0.8); Red Blood Count 2.68 M/mm3 (3.65-5.03)
[2019-08-21 05:20] LABS: Red Cell Distribution Width 20.2 % (13.2-15.2)
[2019-08-21 05:22] LABS: Platelet Count 29 K/mm3 (140-440)
[2019-08-21 05:42] LABS: BUN/Creatinine Ratio 21; Blood Urea Nitrogen 23 mg/dL (9-20); Calcium 8.7 mg/dL (8.4-10.2); Hemolysis Index 8
[2019-08-21] MEDS: INSULIN LISPRO 100 UNIT/ML SUB-Q SCH ×3 (07:30→17:22)
[2019-08-21] MEDS: DULoxetine 30 MG CAP PO SCH ×2 (09:21→10:00)
[2019-08-21] MEDS: TAMSULOSIN 0.4 MG CAP PO SCH ×2 (09:21→10:00)
[2019-08-21] MEDS: risperiDONE 0.25 MG TAB PO SCH ×3 (09:21→21:05)
[2019-08-21] MEDS: ESCITALOPRAM 10 MG TAB PO SCH ×2 (09:21→10:01)
[2019-08-21] MEDS: PREGABALIN 75 MG CAP PO SCH ×3 (09:21→21:05)
[2019-08-21] MEDS: PANTOPRAZOLE 40 MG TAB PO SCH ×3 (09:21→21:05)
[2019-08-21] MEDS: DOCUSATE SODIUM 100 MG CAP PO SCH ×3 (09:22→21:05)
[2019-08-21] MEDS: ASPIRIN 81 MG TAB CHEW PO SCH ×2 (09:22→10:00)
[2019-08-21] MEDS: NICOTINE 14 MG/24 HR PATCH TD SCH ×2 (09:22→10:01)
[2019-08-21] MEDS: HEPARIN 5,000 UNIT/1 ML VIAL SUB-Q SCH ×2 (09:23→21:05)
--- NOTE | 2019-08-21 10:34 | Progress Note ---
Assessment and Plan Chest Pain Pt with c/o intermittent cp overnight. AMI r/o. CXR NAF. DDimer WNL. Pt reports that he was hospitalized at the [place] 2-3 weeks ago for evaluation of chest pain. He thinks he had a stress test at that time. We have been unable to obtain these records thus far. TTE reviewed with no significant abnormalities. Cont ASA 81. Proceed with lexiscan MPI stress test in AM. NPO after MN. BRUNILDA Improved. Anemia / thrombocytopenia Monitor H/H. Hypotension Suspect secondary to ? dehydration. Pt with h/o chronic HTN. BPs improving. Cont IVF per primary. DM / peripheral neuropathy Per primary team. Malnutrition PTSD Pt is resident at [facility]. Mental health team is following. Currently stable cardiac status. TTE reviewed with no significant abnormalities. AMI r/o. Pt still with c/o intermittent chest pain overnight, he is eating breakfast this AM despite NPO order. Pt reports that he was hospitalized at the [place] 2-3 weeks ago for evaluation of chest pain. He thinks he had a stress test at that time. We have been unable to obtain these records thus far. Proceed with lexiscan MPI stress test in AM. NPO after MN. The patient has been seen in conjunction with Dr. Maher who agrees with the assessment and plan of care. Subjective Date of service: 08/21/19 Principal diagnosis: cp Interval history: pt resting in bed, eating breakfast despite NPO order. c/o intermittent cp overnight. in SR on tele. Objective Last Vital Signs Temp 98.0 F 08/21/19 08:35 Pulse 75 08/21/19 08:35 Resp 18 08/21/19 08:35 BP 111/62 08/21/19 08:35 Pulse Ox 100 08/21/19 08:35 - Physical Examination General: No Apparent Distress HEENT: Positive: PERRL, Normocephaly, Mucus Membranes Moist Neck: Positive: neck supple, trachea midline Cardiac: Positive: Reg Rate and Rhythm, S1/S2 Lungs: Positive: Decreased Breath Sounds Neuro: Positive: Cranial Nerve 2-12 Intact Abdomen: Negative: Tender Skin: Negative: Rash Musculoskeletal: No Pain Extremities: Absent: edema - Labs and Meds CBC 08/21/19 Range/Units 04:23 WBC 6.3 (4.5-11.0) K/mm3 RBC 2.68 L (3.65-5.03) M/mm3 Hgb 8.1 L (11.8-15.2) gm/dl Hct 23.4 L (35.5-45.6) % Plt Count 29 L (140-440) K/mm3 Lymph # 1.5 (1.2-5.4) K/mm3 [place] # 0.5 (0.0-0.8) K/mm3 Eos # 0.3 (0.0-0.4) K/mm3 Baso # 0.0 (0.0-0.1) K/mm3 Comprehensive Metabolic Panel 08/21/19 Range/Units 04:23 Sodium 146 H (137-145) mmol/L Potassium 3.8 (3.6-5.0) mmol/L Chloride 106.5 (98-107) mmol/L Carbon Dioxide 28 (22-30) mmol/L BUN 23 H (9-20) mg/dL Creatinine 1.1 (0.8-1.5) mg/dL Glucose 53 L (75-100) mg/dL Calcium 8.7 (8.4-10.2) mg/dL - Imaging and Cardiology EKG: report reviewed, image reviewed Echo: pending - EKG Sinus rhythms and dysrhythmias: sinus rhythm
--- NOTE | 2019-08-21 13:03 | Progress Note ---
Assessment and Plan Assessment and plan: BRUNILDA due to vasomotor ne Hospitalist Physical - Constitutional Vitals: Temp Pulse Resp BP Pulse Ox 97.9 F 71 18 142/71 100 08/21/19 12:31 08/21/19 12:31 08/21/19 12:31 08/21/19 12:31 08/21/19 12:31 General appearance: Present: no acute distress MARCO score - Marco Score Age > 65: (1) Yes Aspirin use within the Past 7 Days: (1) Yes 3 or more CAD Risk Factors: (0) No 2 or more Angina events in past 24 hrs: (1) Yes Known CAD with more than 50% Stenosis: (0) No Elevated Cardiac Markers: (0) No ST Deviation Greater than 0.5mm: (0) No MARCO Score: 3 Results - Labs CBC & Chem 7: 08/21/19 04:23 08/21/19 04:23 Labs: Laboratory Last Values WBC 6.3 K/mm3 (4.5-11.0) 08/21/19 04:23 RBC 2.68 M/mm3 (3.65-5.03) L 08/21/19 04:23 Hgb 8.1 gm/dl (11.8-15.2) L 08/21/19 04:23 Hct 23.4 % (35.5-45.6) L 08/21/19 04:23 MCV 88 fl (84-94) 08/21/19 04:23 MCH 30 pg (28-32) 08/21/19 04:23 MCHC 35 % (32-34) H 08/21/19 04:23 RDW 20.2 % (13.2-15.2) H 08/21/19 04:23 Plt Count 29 K/mm3 (140-440) L 08/21/19 04:23 Lymph % (Auto) 23.9 % (13.4-35.0) 08/21/19 04:23 [place]bour % (Auto) 8.0 % (0.0-7.3) H 08/21/19 04:23 Eos % (Auto) 5.2 % (0.0-4.3) H 08/21/19 04:23 Baso % (Auto) 0.6 % (0.0-1.8) 08/21/19 04:23 Lymph # 1.5 K/mm3 (1.2-5.4) 08/21/19 04:23 [place] # 0.5 K/mm3 (0.0-0.8) 08/21/19 04:23 Eos # 0.3 K/mm3 (0.0-0.4) 08/21/19 04:23 Baso # 0.0 K/mm3 (0.0-0.1) 08/21/19 04:23 Add Manual Diff Complete 08/20/19 01:57 Total Counted 100 08/20/19 01:57 Seg Neutrophils % 62.3 % (40.0-70.0) 08/21/19 04:23 Seg Neuts % (Manual) 77.0 % (40.0-70.0) H 08/20/19 01:57 Band Neutrophils % 1.0 % 08/20/19 01:57 Lymphocytes % (Manual) 12.0 % (13.4-35.0) L 08/20/19 01:57 Reactive Lymphs % (Man) 0 % 08/20/19 01:57 Monocytes % (Manual) 3.0 % (0.0-7.3) 08/20/19 01:57 Eosinophils % (Manual) 7.0 % (0.0-4.3) H 08/20/19 01:57 Basophils % (Manual) 0 % (0.0-1.8) 08/20/19 01:57 Metamyelocytes % 0 % 08/20/19 01:57 Myelocytes % 0 % 08/20/19 01:57 Promyelocytes % 0 % 08/20/19 01:57 Blast Cells % 0 % 08/20/19 01:57 Nucleated RBC % Not Reportable 08/20/19 01:57 Seg Neutrophils # 3.9 K/mm3 (1.8-7.7) 08/21/19 04:23 Seg Neutrophils # Man 6.9 K/mm3 (1.8-7.7) 08/20/19 01:57 Band Neutrophils # 0.1 K/mm3 08/20/19 01:57 Lymphocytes # (Manual) 1.1 K/mm3 (1.2-5.4) L 08/20/19 01:57 Abs React Lymphs (Man) 0.0 K/mm3 08/20/19 01:57 Monocytes # (Manual) 0.3 K/mm3 (0.0-0.8) 08/20/19 01:57 Eosinophils # (Manual) 0.6 K/mm3 (0.0-0.4) H 08/20/19 01:57 Basophils # (Manual) 0.0 K/mm3 (0.0-0.1) 08/20/19 01:57 Metamyelocytes # 0.0 K/mm3 08/20/19 01:57 Myelocytes # 0.0 K/mm3 08/20/19 01:57 Promyelocytes # 0.0 K/mm3 08/20/19 01:57 Blast Cells # 0.0 K/mm3 08/20/19 01:57 WBC Morphology Not Reportable 08/20/19 01:57 Hypersegmented Neuts Not Reportable 08/20/19 01:57 Hyposegmented Neuts Not Reportable 08/20/19 01:57 Hypogranular Neuts Not Reportable 08/20/19 01:57 Smudge Cells Not Reportable 08/20/19 01:57 Toxic Granulation Not Reportable 08/20/19 01:57 Toxic Vacuolation Not Reportable 08/20/19 01:57 Dohle Bodies Not Reportable 08/20/19 01:57 Pelger-Huet Anomaly Not Reportable 08/20/19 01:57 Christina Rods Not Reportable 08/20/19 01:57 Platelet Estimate Consistent w auto 08/20/19 01:57 Clumped Platelets Not Reportable 08/20/19 01:57 Plt Clumps, EDTA Not Reportable 08/20/19 01:57 Large Platelets Not Reportable 08/20/19 01:57 Giant Platelets Not Reportable 08/20/19 01:57 Platelet Satelliting Not Reportable 08/20/19 01:57 Plt Morphology Comment Not Reportable 08/20/19 01:57 RBC Morphology Not Reportable 08/20/19 01:57 Dimorphic RBCs Not Reportable 08/20/19 01:57 Polychromasia Not Reportable 08/20/19 01:57 Hypochromasia Not Reportable 08/20/19 01:57 Poikilocytosis Not Reportable 08/20/19 01:57 Anisocytosis 1+ 08/20/19 01:57 Microcytosis Not Reportable 08/20/19 01:57 Macrocytosis Not Reportable 08/20/19 01:57 Spherocytes Not Reportable 08/20/19 01:57 Pappenheimer Bodies Not Reportable 08/20/19 01:57 Sickle Cells Not Reportable 08/20/19 01:57 Target Cells Not Reportable 08/20/19 01:57 Tear Drop Cells Not Reportable 08/20/19 01:57 Ovalocytes Not Reportable 08/20/19 01:57 Helmet Cells Not Reportable 08/20/19 01:57 [place] Bodies Not Reportable 08/20/19 01:57 Wayne Rings Not Reportable 08/20/19 01:57 Lashonda Cells Not Reportable 08/20/19 01:57 Bite Cells Not Reportable 08/20/19 01:57 Crenated Cell Not Reportable 08/20/19 01:57 Elliptocytes Not Reportable 08/20/19 01:57 Acanthocytes (Spur) Not Reportable 08/20/19 01:57 Rouleaux Not Reportable 08/20/19 01:57 Hemoglobin C Crystals Not Reportable 08/20/19 01:57 Schistocytes Not Reportable 08/20/19 01:57 Malaria parasites Not Reportable 08/20/19 01:57 Tylor Bodies Not Reportable 08/20/19 01:57 Hem Pathologist Commnt No 08/20/19 01:57 PT 14.8 Sec. (12.2-14.9) 08/20/19 01:57 INR 1.14 (0.87-1.13) H 08/20/19 01:57 APTT 26.9 Sec. (24.2-36.6) 08/20/19 01:57 D-Dimer 206.97 ng/mlDDU (0-234) 08/20/19 04:26 Sodium 146 mmol/L (137-145) H 08/21/19 04:23 Potassium 3.8 mmol/L (3.6-5.0) 08/21/19 04:23 Chloride 106.5 mmol/L (98-107) 08/21/19 04:23 Carbon Dioxide 28 mmol/L (22-30) 08/21/19 04:23 Anion Gap 15 mmol/L 08/21/19 04:23 BUN 23 mg/dL (9-20) H 08/21/19 04:23 Creatinine 1.1 mg/dL (0.8-1.5) 08/21/19 04:23 Estimated GFR > 60 ml/min 08/21/19 04:23 BUN/Creatinine Ratio 21 % 08/21/19 04:23 Glucose 53 mg/dL (75-100) L 08/21/19 04:23 POC Glucose 146 (70-105) H 08/21/19 11:45 Hemoglobin A1c 5.0 % (4-6) 08/20/19 04:26 Calcium 8.7 mg/dL (8.4-10.2) 08/21/19 04:23 Total Bilirubin 1.10 mg/dL (0.1-1.2) 08/20/19 01:57 AST 12 units/L (5-40) 08/20/19 01:57 ALT 10 units/L (7-56) 08/20/19 01:57 Alkaline Phosphatase 75 units/L (35-129) 08/20/19 01:57 Troponin T < 0.010 ng/mL (0.00-0.029) 08/20/19 08:24 Total Protein 5.9 g/dL (6.3-8.2) L 08/20/19 01:57 Albumin 3.3 g/dL (3.9-5) L 08/20/19 01:57 Albumin/Globulin Ratio 1.3 % 08/20/19 01:57 Triglycerides 159 mg/dL (2-149) H 08/20/19 04:26 Cholesterol 141 mg/dL (50-199) 08/20/19 04:26 LDL Cholesterol Direct 77 mg/dL (50-130) 08/20/19 04:26 HDL Cholesterol 44 mg/dL (40-59) 08/20/19 04:26 Cholesterol/HDL Ratio 3.20 % 08/20/19 04:26 Active Medications - Current Medications Current Medications: Generic Name Dose Route Start Last Admin Trade Name Freq PRN Reason Stop Dose Admin Acetaminophen 650 mg 08/20/19 03:08 Tylenol PO Q4H PRN Pain MILD(1-3)/Fever >100.5/COLON Albuterol 2.5 mg 08/20/19 03:08 Proventil IH Q3HRT PRN Shortness Of Breath Aspirin 81 mg 08/21/19 10:00 08/21/19 10:00 Baby Aspirin PO Not Given QDAY [facility] Dextrose 0 ml 08/20/19 03:08 08/21/19 08:06 D50w (25gm) Syringe IV 15 ml Q30MIN PRN Administration Hypoglycemia Protocol Docusate Sodium 100 mg 08/20/19 10:00 08/21/19 10:00 Colace PO Not Given BID [facility] Duloxetine HCl 60 mg 08/20/19 10:00 08/21/19 10:00 Cymbalta PO Not Given QDAY [facility] Escitalopram Oxalate 30 mg 08/20/19 10:00 08/21/19 10:01 Lexapro PO Not Given DAILY [facility] Heparin Sodium (Porcine) 5,000 unit 08/20/19 10:00 08/21/19 09:23 Heparin SUB-Q Not Given Q12HR [facility] Sodium Chloride 1,000 mls @ 75 mls/hr 08/20/19 03:15 Nacl 0.9% 1000 Ml IV DIRECT [facility] Insulin Glargine 15 units 08/20/19 22:00 08/20/19 23:15 Lantus SUB-Q 15 units HS [facility] Administration Insulin Human Lispro 0 unit 08/20/19 07:30 08/21/19 11:30 Humalog SUB-Q Not Given ACHS [facility] Protocol Melatonin 5 mg 08/20/19 05:00 Melatonin PO QHS PRN Sleep Metoclopramide HCl 5 mg 08/20/19 13:00 Reglan IV Q6H PRN Nausea And Vomiting Nicotine 14 mg 08/20/19 10:00 08/21/19 10:01 Habitrol TD 14 mg QDAY [facility] Administration Nitroglycerin 0.4 mg 08/20/19 03:10 Nitrostat SL Q5M PRN Chest Pain Ondansetron HCl 4 mg 08/20/19 03:08 Zofran IV Q6H PRN Nausea And Vomiting Oxycodone/Acetaminophen 1 tab 08/20/19 03:14 08/20/19 21:13 Percocet 5/325 PO 1 tab Q6H PRN Administration Pain, Moderate (4-6) Pantoprazole Sodium 40 mg 08/20/19 10:00 08/21/19 10:01 Protonix PO Not Given BID [facility] Pregabalin 75 mg 08/20/19 10:00 08/21/19 10:01 Pregabalin PO Not Given BID [facility] Risperidone 0.25 mg 08/20/19 14:00 08/21/19 10:01 Risperdal PO Not Given BID [facility] Sodium Chloride 10 ml 08/20/19 10:00 08/21/19 10:02 Sodium Chloride Flush Syringe 10 Ml IV 10 ml BID [facility] Administration Sodium Chloride 10 ml 08/20/19 03:08 Sodium Chloride Flush Syringe 10 Ml IV PRN PRN LINE FLUSH Tamsulosin HCl 0.4 mg 08/20/19 10:00 08/21/19 10:00 Flomax PO Not Given DAILY [facility] Nutrition/Malnutrition Assess - Dietary Evaluation Nutrition/Malnutrition Findings: Nutrition Notes Start: 08/20/19 11:23 Freq: Status: Active Protocol: Document 08/21/19 11:55 AP (Rec: 08/21/19 12:04 AP [id number]) Co-Sign 08/21/19 11:55 LP Nutrition Notes Initial or Follow up Reassessment Current Diagnosis Acute Kidney Injury,Coronary Artery Disease,Diabetes, Hypertension Other Pertinent Diagnosis PTSD, BPH Current Diet Cardiac/CC Labs/Tests NA 146 BUN 23 BG 53 Pertinent Medications Reviewed Height 5 ft 10 in Weight 63.5 kg [place] Body Weight (kg) 75.45 BMI 20.0 Intake Prior to Admission Poor Weight change and time frame 30% in three months Weight Status Underweight Subjective/Other Information F/U for intakes. Pt consumed 80% of bfast. Pt was "NPO" at bfast tome, but the RN stated that was not correct. RN stated there was an order for a test that got cancelled. Noted per chart pt will be NPO again at 0:00 08/22. Also noted no glucerna in pt room. Percent of energy/protein needs met: 91%/75% Burn Absent Trauma Absent GI Symptoms None Current % PO Fair (50-74%) Minimum of two criteria Yes Interpretation of Weight Loss (severe) >7.5% in 3 months Body Fat Depletion Moderate depletion (severe) Muscle Mass Moderate Depletion (severe) #1 Nutrition Diagnosis Malnutrition Diagnosis Progress(for reassessment Continues documentation) Is patient on ventilator? No Is Patient Ambulatory and/or Out of Bed Yes REE-([facility] Je[facility]-ambulatory/OOB) [ 1828.125 [id number]] Calculation Used for Recommendations [facility] Je[facility] Additional Notes PRO needs: 76-95g (1.2-1.5g/kg ) Fluid: 1ml/kcal or per MD Nutrition Intervention Change Diet Order: Continue cardiac/cc Add Supplement/Snack (indicate name/kcal Glucerna BID /protein ) Provides kCal: 440 Provides Protein (gm) 20 Goal #1 Pt continue to meet >80% kcal/ PRO needs via PO/ONS Anticipated Discharge Needs: Cardiac/CC Follow-Up By: 08/25/19 Additional Comments F/U for steady PO/ONS intakes.
--- NOTE | 2019-08-21 15:16 | Progress Note ---
Subjective - Reason for Consult Consult date: 08/21/19 Reason for consult: psychiatric assessment - Chief Complaint Chief complaint: In my interview with the patient this morning, the patient was in bed asleep easily aroused. The patient is alert oriented to name only when the patient was asked if he knew where he was the patient states [place] went to say. The patient states I think the year is 1919.The patient is dressed appropriately for the occasion. He does maintain eye contact intermittently. The patient is grossly disorganized and confused. The patient is unable to answer questions appropriately. All questions that has been asked the patient either say he doesn't know or confabulate stories. no aggression or agitation noted at this time. Review of Symptoms: Constitutional: Negative for weight loss ENT: Negative for stridor Respiratory: Negative for cough or hemoptysis All other systems reviewed and are negative MSE Appearance: Wearing appropriate clothing. Good hygiene Behavior: Pleasant and cooperative. Mood: "Good" Affect: Congruent with stated mood Thought Process: tangential Speech: Normal rate. Thought Content Harmfulness Denies SI/HI Hallucinations: patient denies Delusions: none elicited Consciousness: alert /confused Cognition/Memory:forgetful RECOMMENDATIONS MEDICATIONS: continue medication regimen MEDICAL: Per primary team DELIRIUM PRECAUTIONS: Please re-orient patient frequently, keep lights on during the day, and minimize benzodiazepines and opiates as these medications could worsen patient's confusion. SYSTEM CONFIGURATION SPECIALIST: DISPOSITION: The patient remain confused and his unable to answer questions pertaining to his mental health assessment, we will continue to follow until a mental health assessment can be completed LEGAL STATUS: FOLLOW-UP: Will follow Mental Status Exam - Vital signs Last Vital Signs Temp 97.9 F 08/21/19 12:31 Pulse 71 08/21/19 12:31 Resp 18 08/21/19 12:31 BP 142/71 08/21/19 12:31 Pulse Ox 100 08/21/19 12:31
[2019-08-21] MEDS: INSULIN GLARGINE 100 UNITS/ML SUB-Q SCH (21:05)
[2019-08-22] MEDS: INSULIN LISPRO 100 UNIT/ML SUB-Q SCH ×3 (00:32→12:39)
[2019-08-22] MEDS ORDERED: REGADENOSON 0.4 MG/5 ML INJ IV ONE ×2 (07:52→07:56)
--- NOTE | 2019-08-22 10:06 | Progress Note ---
Assessment and Plan Patient better today and was noted to be anemic. Chest pain is significantly improved. Nuclear stress test is pending. - Patient Problems (1) Acute chest pain Current Visit: Yes Status: Acute (2) Renal insufficiency Current Visit: Yes Status: Acute (3) Thrombocytopenia Current Visit: Yes Status: Acute Subjective Date of service: 08/22/19 Principal diagnosis: cp Interval history: Patient is feeling better today. No significant chest pain today. He is scheduled to have a nuclear stress test. Objective Vital Signs Temp Pulse Pulse Resp BP Pulse Ox 08/22/19 07:54 83 08/22/19 07:11 98.0 F 84 18 138/66 94 08/22/19 04:38 98.0 F 89 18 147/67 94 08/21/19 23:49 98.0 F 97 H 18 135/59 96 08/21/19 22:00 93 H 08/21/19 19:18 98.0 F 93 H 18 138/62 97 08/21/19 16:56 97.7 F 88 18 132/64 98 08/21/19 12:31 97.9 F 71 18 142/71 100 08/21/19 11:03 75 18 100 - Physical Examination General: No Apparent Distress HEENT: Positive: PERRL, Normocephaly, Mucus Membranes Moist Neck: Positive: neck supple, trachea midline Cardiac: Positive: Reg Rate and Rhythm Lungs: Positive: clear to auscultation Neuro: Positive: Cranial Nerve 2-12 Intact Abdomen: Negative: Tender Skin: Negative: Rash Musculoskeletal: No Pain Extremities: Absent: edema - Imaging and Cardiology EKG: report reviewed, image reviewed Echo: pending - EKG Sinus rhythms and dysrhythmias: sinus rhythm
[2019-08-22] MEDS: TAMSULOSIN 0.4 MG CAP PO SCH (10:57)
[2019-08-22] MEDS: PREGABALIN 75 MG CAP PO SCH (10:57)
[2019-08-22] MEDS: ESCITALOPRAM 10 MG TAB PO SCH (10:58)
[2019-08-22] MEDS: ASPIRIN 81 MG TAB CHEW PO SCH (10:58)
[2019-08-22] MEDS: DULoxetine 30 MG CAP PO SCH (10:58)
[2019-08-22] MEDS: PANTOPRAZOLE 40 MG TAB PO SCH (10:59)
[2019-08-22] MEDS: NICOTINE 14 MG/24 HR PATCH TD SCH (10:59)
[2019-08-22] MEDS: DOCUSATE SODIUM 100 MG CAP PO SCH (11:02)
[2019-08-22] MEDS: risperiDONE 0.25 MG TAB PO SCH (11:02)
[2019-08-22 11:58] LABS: Hematocrit 25.2 % (35.5-45.6); Hemoglobin 8.6 gm/dl (11.8-15.2); Mean Corpuscular HGB Conc 34 % (32-34); Mean Corpuscular Volume 88 fl (84-94); Red Blood Count 2.86 M/mm3 (3.65-5.03)
[2019-08-22 11:59] LABS: Red Cell Distribution Width 20.9 % (13.2-15.2)
[2019-08-22 12:34] LABS: Platelet Count 69 K/mm3 (140-440)
[2019-08-22] MEDS: oxyCODONE /ACETAMINOPHEN 5-325MG TAB PO PRN (12:41)
[2019-08-22 12:47] VITALS: BP 181/71
--- NOTE | 2019-08-22 13:16 | Event Note ---
Date: 08/22/19 Patient medically cleared to discharge
--- NOTE | 2019-08-22 13:16 | Discharge Summary ---
Providers - Providers Date of Admission: 08/20/19 03:48 Date of discharge: 08/22/19 Attending physician: SERGE ROMERO 08/20/19 03:10 Consult to Physician [CONS] Routine Comment: Consulting Provider: PEÑA GIRALDO Physician Instructions: Reason For Exam: c/o CP, hx CAD Primary care physician: GUEVARA RUBY MD Hospitalization Condition: Fair Disposition: DC/[place]-[id number] PSY HOSP/PSY UNIT - Discharge Diagnoses (1) GERD (gastroesophageal reflux disease) Status: Acute (2) Acute chest pain Status: Acute Comment: due to GERD (3) BRUNILDA (acute kidney injury) Status: Acute (4) Vasomotor nephropathy Status: Acute Exam - Constitutional Vitals: Temp Pulse Resp BP Pulse Ox 98.2 F 82 18 181/71 99 08/22/19 12:43 08/22/19 12:43 08/22/19 12:43 08/22/19 12:43 08/22/19 12:43 Plan Activity: advance as tolerated Diet: low fat, low cholesterol, low salt Plan of Treatment: 1.Discharge to [facility] Follow up with: PRIMARY CARE, [Primary Care Provider] - 3-5 Days
--- NOTE | 2019-08-22 14:49 | Progress Note ---
Subjective - Reason for Consult Consult date: 08/22/19 Reason for consult: psychiatric assessment - Chief Complaint Chief complaint: In my interview with the patient this morning, the patient was in bed asleep alert and oriented 2, patient Re-oriented to time. the patient maintain eye contact, is dressed appropriately for the occasional, he is able to make needs known. The patient reports that his mind does wander off at times. The patient is cooperative and conversant appears in no acute distress. Abnormal content elicited, denies suicidal and homicidal ideation. Cognition appears grossly intact with appropriate attention span showed average fund of knowledge. patient judgment appears fair.the patient report depression and his current depression symptoms are attributed to the of his Mother last month, patient stated that he's been dealing with the depression but he is not suicidal. Patient reported that he is actually doing better, getting out of bed and is not so withdrawn. the patient reports that he is eating and sleeping well .The patient is currently on Lexapro, Cymbalta, and risperidone which he will be discharged with. Review of Symptoms: Constitutional: Negative for weight loss ENT: Negative for stridor Respiratory: Negative for cough or hemoptysis All other systems reviewed and are negative MSE Appearance: Wearing appropriate clothing. Good hygiene Behavior: Pleasant and cooperative. Mood: "Good" Affect: Congruent with stated mood Thought Process: goal-directed Speech: Normal rate. Thought Content Harmfulness Denies SI/HI Hallucinations: patient denies Delusions: none elicited Consciousness: alert and oriented 3 Cognition/Memory:intact RECOMMENDATIONS MEDICATIONS: continue psychiatric medication with discharge MEDICAL: Per primary team LEAD APPLICATIONS DEVELOPER: DISPOSITION: The patient is able to articulate needs, is motivated for compliance and adherence to medication regimen. The patient likely poses no risk to self and no risk to others at this time. Patient denies abnormal perceptions and does not appear to be responding to internal stimuli. Outpatient treatment setting is recommended at this time. LEGAL STATUS: FOLLOW-UP: sign off Mental Status Exam - Vital signs Last Vital Signs Temp 98.2 F 08/22/19 12:43 Pulse 82 08/22/19 12:43 Resp 18 08/22/19 12:43 BP 181/71 08/22/19 12:43 Pulse Ox 99 08/22/19 12:43
--- NOTE | 2019-08-22 23:35 | Treadmill Report ---
NUCLEAR STRESS TEST REPORT The patient is brought to the nuclear cardiology lab and a Lexiscan stress test is performed. The patient tolerated Lexiscan administration well. Post-stress images revealed fairly homogeneous distribution on the isotope with no significant reversibility during rest. Accompanying gated study shows an ejection fraction of 69%. Abnormal TID at 1.49 is noted. IMPRESSION: 1. Nuclear stress test is noted to be negative for significant reversible defects to indicate ischemia. Accompanying gated study shows good systolic function. Ejection fraction is calculated to be 69%. 2. TID is noted to be 1.49, which is increased and is of questionable significance. 3. Suggest clinical correlation. JOB# [id number] KBM/[id number]
== END 2019-08-22 17:23 | DRG 391 ==
LOC: ED 01:26 → 4A 03:48
PROVIDERS: ADMIT Internal Medicine; ATTEND Internal Medicine
DX: K21.9 Gastro-esophageal reflux disease without esophagitis (principal); N17.0 Acute kidney failure with tubular necrosis; E43 Unspecified severe protein-calorie malnutrition; Z68.1 Body mass index [BMI] 19.9 or less, adult; E46 Unspecified protein-calorie malnutrition; I95.9 Hypotension, unspecified; D69.6 Thrombocytopenia, unspecified; D64.9 Anemia, unspecified; E11.42 Type 2 diabetes mellitus with diabetic polyneuropathy; F43.10 Post-traumatic stress disorder, unspecified; F17.210 Nicotine dependence, cigarettes, uncomplicated; M54.30 Sciatica, unspecified side; I10 Essential (primary) hypertension; F32.9 Major depressive disorder, single episode, unspecified; I25.10 Atherosclerotic heart disease of native coronary artery without angina pectoris; N40.0 Benign prostatic hyperplasia without lower urinary tract symptoms; Z71.6 Tobacco abuse counseling; Z79.4 Long term (current) use of insulin; Z79.899 Other long term (current) drug therapy; Z88.9 Allergy status to unspecified drugs, medicaments and biological substances; Z91.018 Allergy to other foods; Z88.8 Allergy status to other drugs, medicaments and biological substances
CPT/HCPCS: 36415; 74022; 78452; 80048; 80053; 80061; 82962; 83036; 84484; 85007; 85025; 85027; 85379; 85610; 85730; 87116; 93005; 93010; 93017; 93306; 99406; G0378; A9502; J1644; J1815; J2405; J2785; J7030